=== PATIENT | male | born 1935 | race Two or more races ===

== ENCOUNTER 2018-10-05 21:39 | Emergency (ER) | payer MEDICARE, MEDICAID ==
[~2018-10-05] VITALS: Ht 177.8 cm; Wt 98.2 kg
--- NOTE | 2018-10-05 21:49 | NUR ---
patient in the bathroom at this time.
--- NOTE | 2018-10-05 22:50 | NUR ---
pt to room from lobby
--- NOTE | 2018-10-05 23:23 | NUR ---
POC DISCUSSED. STOOL SAMPLE DISCUSSED. PT STATES HE USED THE RESTROOM SEVERAL TIMES WHILE WAITING IN THE LOBBY AND DOES NOT FEEL HE CAN GIVE ONE RIGHT NOW. BEDSIDE COMMODE IN ROOM. PT AGREES TO TRY WHEN ABLE. PT AND FAMILY DENY FURTHER NEEDS AT THIS TIME.
[2018-10-05 23:41] LABS: BASOPHILS # (AUTO) 0.02 x10^3/uL (0-0.1); BASOPHILS % (AUTO) 0 % (0-1); EOSINOPHILS # (AUTO) 0.12 x10^3/uL (0-0.4); EOSINOPHILS % (AUTO) 2 % (1-7); LYMPHOCYTES # (AUTO) 0.89 x10^3/uL (1-3.4); LYMPHOCYTES % (AUTO) 13 % (22-44); MD NO; MEAN CORPUSCULAR HEMOGLOBIN 30.5 pg (27.5-34.5); MEAN CORPUSCULAR HGB CONC 33.1 g/dL (33.2-36.2); MEAN CORPUSCULAR VOLUME 91.9 fL (81-97); MEAN PLATELET VOLUME 7.7 fL (7.4-10.4); MONOCYTES # (AUTO) 0.84 x10^3/uL (0.2-0.8); MONOCYTES % (AUTO) 12 % (2-9); NEUTROPHILS # (AUTO) 5.09 x10^3/uL (1.8-6.8); NEUTROPHILS % (AUTO) 73 % (42-75); PLATELET COUNT 195 x10^3/uL (130-400); RED BLOOD COUNT 4.94 x10^6/uL (4.38-5.82); RED CELL DISTRIBUTION WIDTH 14.1 % (9.4-14.8)
[2018-10-05 23:54] LABS: ALANINE AMINOTRANSFERASE 37 U/L (12-78); ALBUMIN 3.3 g/dL (3.4-5.0); ANION GAP 6 mmol/L (5-15); CALCIUM 9.2 mg/dL (8.5-10.1); CHLORIDE 118 mmol/L (98-107); CREATININE 2.45 mg/dL (0.7-1.3)
[2018-10-05 23:56] LABS: ALKALINE PHOSPHATASE 119 U/L (45-117); BILIRUBIN,TOTAL 0.2 mg/dL (0.2-1.0); TOTAL PROTEIN 7.5 g/dL (6.4-8.2)
--- NOTE | 2018-10-06 00:34 | NUR ---
PT HAS MADE MULTIPLE ATTEMPTS FOR A STOOL SAMPLE BUT HAS BEEN UNSUCCESSFUL. AT THIS TIME PT REQUESTING IMMODIUM AND TO BE DISCHARGED. INFORMED.
--- NOTE | 2018-10-06 00:36 | NUR ---
PA AT BEDSIDE
--- NOTE | 2018-10-06 00:54 | NUR ---
PA DISCUSSED WITH PT HER DESIRE TOGIVE HIM IV FLUIDS. PT DECLINED THIS OFFER AND STATED HE DID NOT BELIEVE THE LAB WORK. PT REQUESTING TO LEAVE. PT TBDC.
[2018-10-06 00:55] VITALS: BP 110/74
== END 2018-10-06 00:56 | disposition home or self-care (01) ==
LOC: ED 22:59
DX: R19.7 Diarrhea, unspecified (principal); N28.9 Disorder of kidney and ureter, unspecified; I10 Essential (primary) hypertension
CPT/HCPCS: 36415; 80053; 83690; 85025; 99283